=== PATIENT | female | born 1945 | race Caucasian/White ===

== ENCOUNTER 2022-06-20 05:41 | Day surgery (SDC) | payer OTHER ==
[2022-06-17 12:13] LABS: BASOPHILS % (AUTO) 0.5 % (0.0-5.0); EOSINOPHILS % (AUTO) 6.8 % (0.0-8.0); HEMATOCRIT 40.2 % (36-48); MEAN CORPUSCULAR HEMOGLOBIN 28.2 pg (27.0-33.0); MEAN CORPUSCULAR HGB CONC 31.3 g/dL (32.0-36.0); MEAN CORPUSCULAR VOLUME 89.9 fL (79-99); MONOCYTES % (AUTO) 8.9 % (3.0-13.0); NEUTROPHILS % (AUTO) 62.5 % (40.0-77.0); PLATELET COUNT (AUTO) 172 K/uL (130-400); RED BLOOD CELL COUNT(AUTO) 4.47 MIL/uL (4.00-5.50); WHITE BLOOD COUNT (AUTO) 6.4 K/uL (4.8-10.8)
[2022-06-17 12:23] VITALS: BP 141/69
[2022-06-17 12:25] LABS: ALBUMIN 3.2 g/dL (3.5-5.0); BILIRUBIN,DIRECT 0.3 mg/dL (0.0-0.3); CREATININE 0.7 mg/dL (0.5-1.5); TOTAL PROTEIN, SERUM 6.6 g/dL (6.0-8.3)
[2022-06-17 13:01] LABS: INR 0.93 (0.85-1.15); PROTHROMBIN TIME 10.1 SEC (9.6-11.6)
[2022-06-17 13:02] LABS: PARTIAL THROMBOPLASTIN TIME 25.7 SEC (26.3-35.5)
[~2022-06-20] VITALS: Ht 160 cm; Wt 84.2 kg
[2022-06-20] VITALS (16 sets, daily range): BP systolic 114–158; BP diastolic 66–92
[~2022-06-20 05:41] MED LIST: DORZ1DRO7 OP; LATA7.5D OP; LIDOCAINE 1%-EPI 1:100,000 20 ML VIAL IJ ONE; LOTE55OS OU
[2022-06-20] MEDS ORDERED: LACTATED RINGERS 1000ML 1,000 ML IV ONE (06:23)
[2022-06-20] MEDS ORDERED: VANCOMYCIN 1G/250ML KIT 250 ML IV ONE (06:23)
[2022-06-20] MEDS ORDERED: LIDOCAINE PF 100MG/5ML (2%) SYRINGE 5ML ONE (07:20)
[2022-06-20] MEDS ORDERED: ONDANSETRON 4MG INJ ONE (07:21)
[2022-06-20] MEDS ORDERED: FENTANYL CITRATE PF 50 MCG/1 ML 2ML VIAL ONE (07:21)
[2022-06-20] MEDS ORDERED: PROPOFOL 10 MG/ML 20ML VIAL IV ONE (07:21)
[2022-06-20] MEDS ORDERED: LIDOCAINE 1%-EPI 1:100,000 20 ML VIAL IJ ONE (07:41)
[2022-06-20] MEDS ORDERED: CEFAZOLIN SODIUM 2 GM VIAL IVPB SCH (08:00)
== END 2022-06-20 09:40 | disposition home or self-care (01) ==
LOC: DAH 05:41
PROVIDERS: ATTEND Surgery
DX: C50.412 Malignant neoplasm of upper-outer quadrant of left female breast (principal); Z20.822 Contact with and (suspected) exposure to COVID-19; E66.9 Obesity, unspecified; Z79.01 Long term (current) use of anticoagulants; Z79.899 Other long term (current) drug therapy; Z98.890 Other specified postprocedural states; Z90.49 Acquired absence of other specified parts of digestive tract; Z80.0 Family history of malignant neoplasm of digestive organs; Z68.34 Body mass index [BMI] 34.0-34.9, adult
CPT/HCPCS: 80076; 80048; 85025; 85610; 85730; 87426; 36415; 93005; 36561; 77001; 71045; A6260; A4663; A4606; C1788; J7120; J3010; J3490 ×2; J2001; J2704; J2405; J3370; J1644; A4930; A4215; A4222; A4221; A4223 ×2; A4600; 76000